=== PATIENT | male | born 1995 | race Caucasian/White ===

== ENCOUNTER 2019-11-02 10:06 | Emergency (ER) | payer MEDICARE, MEDICAID, SELFPAY ==
[2019-11-02 10:11] VITALS: BP 142/77; PULSE 62; RESP 18; TEMP 36.6; O2SAT 96
--- NOTE | 2019-11-02 10:12 | ED.GENADUL_ITS ---
Discharge Plan Disposition Patient Disposition: HOME Condition: Stable Discharge Details Chief Complaint: RashLesion Clinical Impression: Pilonidal abscess, Urinary urgency Primary Care Provider: Juan Rojas ED Provider: Ivette Garrett Home Meds and New Rx's Prescriptions: New amoxicillin-pot clavulanate [Augmentin] 875-125 mg tablet 1 tab PO BID 10 Days Qty: 20 RF: 0 miscellaneous medical supply Misc 1 each MC BID Qty: 1 RF: 0 Continued albuterol sulfate [ProAir HFA] 90 mcg/actuation HFA aerosol inhaler 2 puff Inhalation Q4H PRN Qty: 2 RF: 1 albuterol sulfate 2.5 mg /3 mL (0.083 %) solution for nebulization 2.5 mg Inhalation Q4H PRN PRN (Reason: shortness of breath or wheezing) Qty: 90 RF: 0 Discharge Instructions Instructions: Urinary Tract Infection in Men (ED), Abscess (ED) Additional Instructions: Your urine sample results do not appear consistent with a urinary tract infection. You were still given information about a urinary tract infection in your discharge instructions. Take the antibiotics as directed until finished. Continue to keep the buttock area clean and dry. Use the sitz bath as directed to irrigate the area to keep it clean. Be sure to cover the area with a dressing if planning to move around. If you are resting at home, remove the dressing and wear cotton underwear to allow the wound to heal and dry. Follow-up with your primary care doctor within the next week for reevaluation. If you have any persistent or worsening urinary symptoms, you should follow-up with urology. Return to the emergency department if you develop any worsening or new concerning symptoms such as fever, worsening pain, redness, swelling or any other concerns. Referrals: Syed Denis MD [ [facility] STAFF PHYSICIAN] - Discharge Data Discharge Physician: Ivette Garrett Medical Decision Making 24-year-old male presents with 2 complaints. First complaint is a painful opening/hole within center of buttocks for the past 3 weeks. Area is becoming larger and more painful. Denies any fever or bleeding. Second complaint is urinary urgency, dysuria and hesitancy over the past week. Patient is not sexually active. He denies any fever, nausea, abdominal pain, penile discharge. There is a 1 x 1.5 cm hole/opening within the superior intergluteal cleft. This appears likely consistent with a possible ruptured pilonidal cyst/abscess. There is minimal surrounding erythema but no induration or fluctuance. The area was cleaned with Hibiclens and dressed. Do not see an indication for any further I&D or packing. Do not see any indication for labs or imaging. Urinalysis negative for infection but does note 30 of protein and 3-5 RBCs. We will treat with augmentin. Patient requested something stronger for pain and a dose of tramadol was given here and 2 tabs for home. A prescription for a sitz bath was given per mom's request. Patient given urology follow-up information if urinary issue persists or worsens. Advised to follow-up with the PCP within 1 week for reevaluation. Usual and customary return precautions given prior to discharge. Medical Records Medical records reviewed: Yes I reviewed the patient's medical records. Lab Data Lab results reviewed: Yes I reviewed the patient's lab results. Labs: Laboratory Tests Range/Units 11/02/19 10:43 Urine Color (Yellow) Yellow Urine Clarity (Clear) Clear Urine pH (5-8) 7.0 Ur Specific [place] (1.005-1.025) 1.025 Urine Protein (Negative) mg/dL 30 H Urine Ketones (Negative) mg/dL Negative Urine Blood (Negative) Negative Urine Nitrite (Negative) Negative Urine Bilirubin (Negative) Negative Urine Urobilinogen (Up TO 0.2) EU/dL 1.0 H Ur Leukocyte Esterase (Negative) Negative Urine RBC (0-2) HPF 3-5 H Urine WBC (0-5) HPF 0-2 Ur Epithelial Cells (Negative) HPF Negative Urine Crystals (Negative) HPF Negative Urine Bacteria (Negative) HPF Few Urine Casts (Negative) LPF Negative Urine Mucus (Negative) Heavy Urine Other (Negative) Negative Ur Culture Indicated? No Urine Glucose (Negative) mg/dL Negative HPI General Mode of arrival: ambulatory . Date/Time Provider Initiated Documentation: 11/02/19 10:12 . Limitations to Documentation: no limitations . Information obtained by: patient . History of Present Illness 24 year old M presents to the emergency department with the chief complaint of 2 complaints: Painful draining hole in buttocks, Urinary urgency, stinging, Quality is described as aching and sharp, and is localized to the genitals and buttocks. Patient reports no radiation. Patient started experiencing this week(s) (3 weeks for buttocks; 1 week for urinary) and it has been constant. Medication improves symptom(s), (some improvement with ibuprofen) No exacerbating factors reported . Patient notes denies fever/chills, loss of appetite, malaise, nausea/vomiting and weakness. Patient did receive the following treatments prior to arrival, NSAID and other (tylenol ) Related Data Home Medications Medication Instructions Recorded Confirmed albuterol sulfate 2.5 mg INHALATION Q4H PRN PRN #90 08/02/19 11/02/19 ml albuterol sulfate 90 mcg/actuation 2 puff INHALATION Q4H PRN #2 08/02/19 11/02/19 aerosol inhaler inhaler amoxicillin-pot clavulanate 1 tab PO BID 10 Days #20 tab 11/02/19 [Augmentin] miscellaneous medical supply 1 each MC BID #1 each 11/02/19 Previous Rx's Medication Instructions Recorded albuterol sulfate 2.5 mg INHALATION Q4H PRN PRN #90 08/02/19 ml albuterol sulfate 90 mcg/actuation 2 puff INHALATION Q4H PRN #2 08/02/19 aerosol inhaler inhaler amoxicillin-pot clavulanate 1 tab PO BID 10 Days #20 tab 11/02/19 [Augmentin] miscellaneous medical supply 1 each MC BID #1 each 11/02/19 Allergies Allergy/AdvReac Type Severity Reaction Status Date / Time No Known Allergies Allergy Unverified 11/02/19 10:17 CATS Allergy Mild Uncoded 11/02/19 10:17 HAY Allergy Mild Uncoded 11/02/19 10:17 Review of Systems All systems reviewed & are unremarkable except as noted in HPI and below Constitutional Constitutional: Reports as per HPI, Denies chills and Denies fever(s) Eyes Eyes: Denies blurry vision ENT Ears, Nose, Mouth, and Throat: Denies dizziness, Denies sore throat and Denies throat swelling Cardiovascular Cardiovascular: Denies chest pain and Denies dyspnea Respiratory Respiratory: Denies cough and Denies dyspnea Gastrointestinal Gastrointestinal: Denies abdominal pain, Denies diarrhea and Denies vomiting Genitourinary Genitourinary: Denies hematuria, Reports dysuria, Denies penile discharge, Reports urinary frequency, Reports urinary hesitancy and Reports urinary urgency Musculoskeletal Musculoskeletal: Denies back pain and Denies numbness Integumentary/Breasts Skin/Breast: Reports lesions and Denies rash Neurologic Neurologic: Denies dizziness, Denies focal weakness and Denies numbness Allergic/Immunologic Allergic/Immunologic: Denies throat swelling [facility] Medical History Asthma (Chronic) Autism Respiratory failure requiring intubation due to severe asthma exacerbation/status asthmaticus - 2017 Surgical History H/O wisdom tooth extraction (Acute) Social History Smoking/Tobacco Use Status: Never Alcohol Intake: current Alcohol Intake frequency: holidays/special occasions only Drug use: Never Additional Social history: unable to assess privately Exam Const General: cooperative, healthy appearing and no acute distress HENMT Head: normal to inspection Face and sinus: normal facial exam Eyes General: appearance normal, both eyes and all related structures EOM: EOM intact bilaterally Neck Neck: normal visual inspection and No submandibular swelling Lymphatic: no lymphadenopathy noted Chest Chest: normal inspection of the chest and no tenderness Resp Effort & Inspection: normal respiratory effort and able to speak in complete sentences Auscultation: clear to auscultation bilaterally Cardio Rate: regular rate Rhythm: regular rhythm GI Inspection: normal to inspection Palpation: soft, not firm, not rigid and nontender Auscultation: normal bowel sounds Male General Exam: Yes normal external exam Penis: normal penis Scrotum: scrotum normal Testes: no testicular mass, no testicular swelling and no testicular tenderness Back/Spine/Pelvis Back/spine/pelvis image: 1. 1.5 cm x 1 cm hole/opening noted within the superior intergluteal cleft. There is minimal surrounding erythema with a darker erythematous border bilaterally on buttocks extending approximately 2 cm from the hole. There is minimal yellowish discharge noted just outside the opening. There is no induration, fluctuance, bleeding, rash or lesions. Anus appears normal to inspection. Skin General skin exam: no rashes or lesions noted Neuro General: alert, awake and oriented x3 Cognition: normal cognition Speech: speech normal Motor: muscle tone normal throughout Sensory Exam: no sensory deficits noted Extrem General: normal to inspection, full ROM, normal capillary refill, no calf tenderness bilaterally and no edema Psych Appearance: grossly normal Mental Status: mental status grossly normal Speech and Movement: speech and movement normal Affect: normal affect
[2019-11-02] MEDS: traMADol 50 MG TAB PO (10:57)
[2019-11-02 11:00] LABS: Bilirubin Negative (Negative); Blood Negative (Negative); Clarity Clear (Clear); Glucose Negative (Negative); Ketones Negative (Negative); Leukocyte Esterase Negative (Negative); Nitrite Negative (Negative); Specific Gravity 1.025 (1.005-1.025)
[2019-11-02 11:14] LABS: Bacteria Few HPF (Negative); C & S Indicated? No; Casts Negative LPF (Negative); Crystals Negative HPF (Negative); Epithelial Cells Negative HPF (Negative); Mucus Heavy (Negative); Other Cells Negative (Negative); WBC 0-2 HPF (0-5)
== END 2019-11-02 11:39 | disposition home or self-care (01) ==
PROVIDERS: Emergency Provider Physician Assistant; PCP Pediatrics
DX: L05.01 Pilonidal cyst with abscess (principal); R39.15 Urgency of urination; R30.0 Dysuria; F84.0 Autistic disorder
CPT/HCPCS: 99283; 81003; 81015

== ENCOUNTER → 2019-12-10 13:57 | Outpatient (BNVA) | payer MEDICARE, MEDICAID, SELFPAY | PROVIDERS: PCP Pediatrics; Referring Provider Pediatrics; Visit Provider Surgery | DX: L05.91 Pilonidal cyst without abscess (principal) | CPT/HCPCS: 99204; 99214 ==

== ENCOUNTER 2020-02-11 07:07 | Day surgery (SDC) | payer MEDICARE, MEDICAID, SELFPAY ==
[2020-02-11] VITALS (7 sets, daily range): BP systolic 110–144; BP diastolic 49–91; PULSE 67–103; RESP 16–20; TEMP 36.2–37.1; O2SAT 95–99
[2020-02-11] MEDS: Lactated Ringers 1,000 ML 80 ML IV ×2 (07:49→09:18)
--- NOTE | 2020-02-11 08:21 | W.PM.HP.N ---
Date of service: 02/11/20 Time of Service: 08:21 Assessment and Plan Assessment and plan (1) Pilonidal cyst without abscess: Status: Acute Assessment and plan: Assessment & Plan (1) Pilonidal cyst without abscess: We discussed the treatment options for pilonidal disease. This includes treating an abscess when it flare up with antibiotics/drainage or excising the area. If an excision is performed, the extent is not known until explored in the OR. The two pits are several cm apart and may result in a sizeable wound. Sometimes the wound can be closed primarily and sometimes it needs to be packed. He should mentally prepare for wound packing for a few months. The risk of recurrence with any approach was discussed. The procedure could be done with a spinal based on his preop discussion with anesthesia. He and his mother agree to proceed with surgery. History of Present Illness Narrative: Pilonidal cyst became infected in mid October. This was the first time he was aware of the issue. Is still uncomfortable, difficult to exercise and sit due to pressure. Continues to drain. Some improvement with antibiotics Has some urinary urgency, no change in bowel habits. Review of Systems All systems reviewed & are unremarkable except as noted in HPI and below PFSH Medical History Aspiration pneumonia (Inactive) Asthma (Chronic) Autism Respiratory failure requiring intubation due to severe asthma exacerbation/status asthmaticus - 2017 Status asthmaticus (Inactive) Urinary urgency (Inactive) Surgical History H/O wisdom tooth extraction (Acute) Social History Smoking/Tobacco Use Status: Never Alcohol Intake: current Alcohol Intake frequency: holidays/special occasions only Alcohol type: beer Drug use: Never Substance use type: does not use Do you feel safe at home: Yes Meds Home Medications and Allergies Home Medications Medication Instructions Recorded Confirmed Type albuterol sulfate 2.5 mg INHALATION Q4H PRN PRN #90 08/02/19 02/06/20 Rx ml miscellaneous medical supply 1 each MC BID #1 each 11/02/19 02/06/20 Rx albuterol sulfate 90 mcg/actuation 2 puff INHALATION Q4H PRN #2 12/07/19 02/11/20 Rx aerosol inhaler inhaler ibuprofen 800 mg tablet 800 mg PO TID 12/10/19 02/11/20 History acetaminophen [Tylenol Extra 500 mg PO Q6H PRN 02/06/20 02/11/20 History Strength] Allergies Allergy/AdvReac Type Severity Reaction Status Date / Time No Known Allergies Allergy Verified 02/11/20 07:19 CATS Allergy Mild Uncoded 02/11/20 07:19 HAY Allergy Mild Uncoded 02/11/20 07:19 Exam Narrative Exam Narrative: Slightly nervous Lungs CTA Heart RRR Small midline pit located at upper aspect of gluteal cleft. Larger opening present distal to this, several cm from the anal region. This opening is about 1cm. No acute abscess or cellulitis. Results Last Vital Signs Temp 97.2 F L 02/11/20 07:22 Pulse 103 H 02/11/20 07:22 Resp 18 02/11/20 07:22 BP 144/91 H 02/11/20 07:22 Pulse Ox 97 02/11/20 07:22 COVID-19 Screening Traveled to [place] from one of the affected countries or regions?: NO
[2020-02-11] MEDS: ceFAZolin 2 GM/50 ML BAG IVPB (08:28)
--- NOTE | 2020-02-11 09:00 | PILONIDAL_PTH ---
PATIENT: Stefanie Aaron LOC: [facility] U#:[id number] AGE/SX: 24/M ROOM: RE02/11/[address]: Chelsea Avila MD : 1995 BED: DIS: 02/11/2020 SPEC #: [id number] RECD: 02/11/20 12:10 STATUS: JORGE REHoa #: [id number] BIANCA: 02/11/20 09:[address]: Chelsea Avila DEPT: Surgical Specimen RECD BY: Alysha Gee ENTERED: 02/11/20 12:10 SP TYPE: PILONIDAL OTHR DR: Juan Rojas MD Tissues: 1 - PILONIDAL CYST/SINUS Procedures: GROSS AND MICRO LEVEL 3 Comments: [id number]
--- NOTE | 2020-02-11 09:14 | W.PM.DSUDISC ---
Discharge Plan Disposition Patient Disposition: HOME Condition: Good Discharge Details Reason For Visit: PILONIDAL CYST Attending Provider: Chelsea Avila Primary Care Provider: Juan Rojas Home Meds and New Rx's Prescriptions: Continued albuterol sulfate [ProAir HFA] 90 mcg/actuation HFA aerosol inhaler 2 puff Inhalation Q4H PRN Qty: 2 RF: 1 ibuprofen 800 mg tablet 800 mg PO TID RF: 0 albuterol sulfate 2.5 mg /3 mL (0.083 %) solution for nebulization 2.5 mg Inhalation Q4H PRN PRN (Reason: shortness of breath or wheezing) Qty: 90 RF: 0 miscellaneous medical supply Misc 1 each MC BID Qty: 1 RF: 0 acetaminophen [Tylenol Extra Strength] 500 mg Tablet 500 mg PO Q6H PRNRF: 0 Discharge Instructions Additional Instructions: The wound is open and should be packed on a daily basis with 1 inch gauze. It should then be covered with 4x4 gauze. The top dressing can be replaced as needed. Call for any concerns including fever, increased pain. A small amount of bloody discharge is expected. Do not lift more than 20 pounds for two weeks. Walking and stairs are fine. Do not drive if on narcotic pain meds or if limited by pain. May use Tylenol alternating with ibuprofen for pain control. Ice is also an option. The maximum dose for Tylenol is 4000 mg/day. May use ibuprofen 800 mg every 8 hours as needed. If concerned about constipation, you may use a stool softener or milk of magnesia. Referrals: Chelsea Avila MD [ [facility] STAFF PHYSICIAN] - (Return on for recheck) Activity:: Do not lift more than 15 pounds Remove Dressings/Wound Care:: 24 hours Shower/Bathe:: 24 hours Diet:: As Tolerated Discharge Orders Discharge Orders: Discharge Order (Routine); Ordered 02/11/20 Ordered By: Chelsea Avila DS: Diagnosis Discharge Diagnosis (1) Pilonidal cyst without abscess: Status: Acute
[2020-02-11] MEDS: Bupivacaine LIPOSOME/PF 133 MG/10 ML VIAL IJ (09:15)
--- NOTE | 2020-02-11 12:30 | W.PM.OP ---
Date of service: 02/11/20 Time of Service: 09:05 Operative Note Operative Note DATE OF PROCEDURE: 02/11/20 PRE-OP DIAGNOSIS: Pilonidal cyst POST-OP DIAGNOSIS: same PROCEDURE: Excision of pilonidal cyst SURGEON: Chelsea Avila ANESTHESIA: local and spinal Patient was transported to: PACU Patient's condition: stable Indications: This patient presented in October with a tender area in the gluteal cleft. He was diagnosed with an infected pilonidal cyst. This improved with antibiotics but he continues to have persistent drainage and tenderness in the region and presents for surgical excision. Procedure Description: The patient had a spinal anesthetic and then was positioned carefully in the prone jackknife position. The gluteal region was taped for exposure and the gluteal cleft prepped with Betadine and draped sterilely. A few centimeters above the anal verge there was a fairly wide pit measuring about 5 mm. This was the location of the drainage. There is no acute infection visualized. Several centimeters cranial to this was a tiny pit. The spinal was tested and the patient had good anesthesia. A probe was inserted into the lower pit opening and the skin overlying the probe opened up with knife and then with cautery down to a chronic pocket with some well-developed granulation tissue as well as a large amount of hair. This pocket did connect with the upper pit although the upper aspect was just a narrow channel. The wall of the cyst was removed with cautery down to healthy tissue. There is good hemostasis. I then packed the wound with a 1 inch gauze because the defect could not be closed without leaving too large of the space. I also injected 10 cc of Exparel at 1 cm intervals around the site. He tolerated the procedure well and was stable to recovery.
== END 2020-02-11 13:10 | disposition home or self-care (01) ==
PROVIDERS: PCP Pediatrics; Visit Provider Surgery
PROC: (CPT 11770; principal; 2020-02-11 08:15)
DX: L05.91 Pilonidal cyst without abscess (principal); F84.0 Autistic disorder
CPT/HCPCS: 11770; NC; 88304; J0690; J2001; J2250; J2704

== ENCOUNTER → 2020-02-14 11:19 | Outpatient (BNVA) | payer MEDICARE, MEDICAID, SELFPAY | PROVIDERS: PCP Pediatrics; Referring Provider Pediatrics; Visit Provider Surgery | DX: Z48.817 Encounter for surgical aftercare following surgery on the skin and subcutaneous tissue (principal) ==

== ENCOUNTER → 2020-02-21 08:59 | Outpatient (BNVA) | payer MEDICARE, MEDICAID, SELFPAY | PROVIDERS: PCP Pediatrics; Referring Provider Pediatrics; Visit Provider Surgery | DX: Z48.817 Encounter for surgical aftercare following surgery on the skin and subcutaneous tissue (principal) ==

== ENCOUNTER → 2020-03-10 13:47 | Outpatient (BNVA) | payer MEDICARE, MEDICAID, SELFPAY | PROVIDERS: PCP Pediatrics; Referring Provider Pediatrics; Visit Provider Surgery | DX: Z48.01 Encounter for change or removal of surgical wound dressing (principal); L05.91 Pilonidal cyst without abscess ==

== ENCOUNTER → 2020-03-24 13:30 | Outpatient (BNVA) | payer MEDICARE, MEDICAID, SELFPAY | PROVIDERS: PCP Pediatrics; Referring Provider Pediatrics; Visit Provider Surgery | DX: Z48.01 Encounter for change or removal of surgical wound dressing (principal); L05.91 Pilonidal cyst without abscess ==

== ENCOUNTER 2024-03-20 20:55 | Emergency (ER) | payer MEDICARE, MEDICAID, SELFPAY ==
[2024-03-20 21:09] VITALS: BP 154/98; PULSE 98; RESP 16; TEMP 36.1; O2SAT 95
--- NOTE | 2024-03-20 21:46 | ED.GENADUL_ITS ---
Discharge Plan Disposition Patient Disposition: Home Condition: Stable Discharge Details Clinical Impression: Dog bite of right lower leg, Dog bite of left hand Primary Care Provider: Unknown,Unknown ED Provider: Naida Roper Home Meds and New Rx's Prescriptions: New amoxicillin-pot clavulanate 875-125 mg tablet 1 tab PO BID 10 Days Qty: 20 0RF Rx Instructions: Take 1 tablet by mouth twice daily for the next 10 days No Action ibuprofen 800 mg tablet 800 mg PO TID albuterol sulfate 2.5 mg /3 mL (0.083 %) solution for nebulization 2.5 mg Inhalation Q4H PRN PRN (Reason: shortness of breath or wheezing) Qty: 90 0RF Rx Instructions: Disp 1 box albuterol sulfate [ProAir HFA] 90 mcg/actuation HFA aerosol inhaler 2 puff Inhalation Q4H PRN Qty: 2 1RF acetaminophen [Tylenol Extra Strength] 500 mg Tablet 500 mg PO Q6H PRN Discharge Instructions Instructions: Animal Bites ED Additional Instructions: At this time there is no evidence of broken bone or fracture. You were given a tetanus booster here in the department. Please take the antibiotic twice daily with yogurt or probiotic for 10 days. Keep the wound clean and dry may wash it with running soap and water daily. Do not soak the area. It is very rare for domesticated dogs in the city to have rabies however you have 48 hours or more to complete the rabies vaccine and get a prophylaxis immunoglobulin if you wish. Rabies treatment and prevention does involve multiple injections of medication. Follow up with primary care provider in 3-5 days. Return to ED sooner if any worsening or concerns. Please take Tylenol or Ibuprofen with food every 4-6 hours as needed for pain and swelling. Referrals: Primary Care Provider [Outside] - 5 days Discharge Data Discharge Date/Time-TO BE ENTERED AT DEPARTURE: 03/20/24 22:42 HPI General Mode of arrival: ambulatory . Date/Time Provider Initiated Documentation: 03/20/24 21:13 . Limitations to Documentation: no limitations . Information obtained by: patient, RN notes reviewed and old records reviewed . HPI Narrative: 28-year-old male presents to the ER with a dog bite to his left index finger and abrasion to right holman which occurred approximately an hour prior to arrival. Patient reports he was taking out the trash when the neighbors dog ran across the street and bit him. It sounds unprovoked. Animal control form filled out by family given to patient by ED staff. Discussed home care strict return instructions and follow-up care they verbalized understanding. Patient has a past medical history of autism, asthma Related Data Home Medications Medication Instructions Recorded Confirmed albuterol sulfate 2.5 mg/3 mL 2.5 mg (3 mL) inhalation Q4H PRN 08/02/19 03/20/24 (0.083 %) solution for nebulization PRN shortness of breath or wheezing #90 mL ibuprofen 800 mg tablet 800 mg PO TID 12/10/19 03/20/24 acetaminophen 500 mg tablet 500 mg PO Q6H PRN 02/06/20 03/20/24 (Tylenol Extra Strength) albuterol sulfate 90 mcg/actuation 2 puff inhalation Q4H PRN ##2 07/28/20 03/20/24 aerosol inhaler (ProAir HFA) amoxicillin 875 mg-potassium 1 tab PO BID Dog bite 10 days #20 03/20/24 clavulanate 125 mg tablet tabs Previous Rx's Medication Instructions Recorded albuterol sulfate 2.5 mg/3 mL 2.5 mg (3 mL) inhalation Q4H PRN 08/02/19 (0.083 %) solution for nebulization PRN shortness of breath or wheezing #90 mL albuterol sulfate 90 mcg/actuation 2 puff inhalation Q4H PRN ##2 07/28/20 aerosol inhaler (ProAir HFA) amoxicillin 875 mg-potassium 1 tab PO BID Dog bite 10 days #20 03/20/24 clavulanate 125 mg tablet tabs Allergies Allergy/AdvReac Type Severity Reaction Status Date / Time CATS Allergy Mild Unknown Uncoded 03/20/24 21:13 HAY Allergy Mild Unknown Uncoded 03/20/24 21:13 General Stated Complaint: AnimalBite DEMARCO: 3 Review of Systems All systems reviewed & are unremarkable except as noted in HPI and below Musculoskeletal Musculoskeletal: Reports as per HPI Integumentary/Breasts Skin/Breast: Reports as per HPI, Reports sores and Reports wounds Exam Skin Wounds: wounds noted avulsion left distal 2nd finger Full body images: 2 1. Small superficial abrasion noted to anterior holman Extrem Left upper extremity: hand Details: laceration (Superficial avulsion dorsal surface left index finger); no crepitus and no foreign bodies Hand/finger images: 2 1. Avulsion, bleeding controlled 2. Blood blister Knee images: 2 1. Superficial abrasion to right anterior holman Course Vital Signs Vital signs: Vital Signs Temperature 36.1 C L 03/20/24 21:09 Pulse 98 H 03/20/24 21:09 Respiratory Rate 16 03/20/24 21:09 Blood Pressure 154/98 H 03/20/24 21:09 Pulse Oximetry 95 03/20/24 21:09 Temperature 36.1 C L 03/20/24 21:09 Temperature Source Temporal Artery Scan 03/20/24 21:09 Pulse 98 H 03/20/24 21:09 Respiratory Rate 16 03/20/24 21:09 Respiratory Effort Normal 03/20/24 21:15 Blood Pressure 154/98 H 03/20/24 21:09 Pulse Oximetry 95 03/20/24 21:09 Oxygen Delivery Method Room Air 03/20/24 21:09 Oxygen Flow Rate 0 03/20/24 21:09 Pain Level 10 03/20/24 21:09 Medical Decision Making 28-year-old male presents to the ER with a dog bite to his left index finger and abrasion to right holman which occurred approximately an hour prior to arrival. Patient reports he was taking out the trash when the neighbors dog ran across the street and bit him. It sounds unprovoked. Animal control form filled out by family given to patient by ED staff. Discussed home care strict return instructions and follow-up care they verbalized understanding. X-ray ordered to rule out fracture, foreign body, no acute bony abnormality, Patient given Augmentin discussed home care strict return instructions and signs of infection. Verbalized understanding. This text was generated using [employer] system, please disregard any oddities of phrase or misspellings. Imaging Data Radiologic Study: Attestation: I personally reviewed and interpreted this imaging study as follows: Imaging: X-Ray My impression: No acute bony abnormality, no evidence of fracture to the distal phalanx of left index finger, no foreign body. Quality:SDOH Health Related Social Needs: 2 No Data to Display PFSH All Active Problems (Updated 03/20/24 @ 22:25 by Naida Roper NP) Dog bite of left hand (Acute) Dog bite of right lower leg (Acute) Postop check (Acute) Medical History (Updated 03/20/24 @ 22:25 by Naida Roper NP) Pre-op evaluation Pilonidal cyst without abscess Urinary urgency Pilonidal abscess Asthma Respiratory failure requiring intubation due to severe asthma exacerbation/status asthmaticus - 2017 Autism Aspiration pneumonia Status asthmaticus Surgical History H/O wisdom tooth extraction Social History Smoking/Tobacco Use Status: Never Smoking risk assessment performed?: Yes Alcohol Intake: current Alcohol Intake frequency: holidays/special occasions only Alcohol type: beer Drug use: Never Substance use type: does not use Do you feel safe at home: Yes
[2024-03-20] MEDS: Amoxicillin 875/Clav. 125 TAB PO (21:59)
--- NOTE | 2024-03-20 22:05 | DI.RAD_ITS ---
Exam(s) XR FINGER LT INDEX EXAM: XR FINGER LT INDEX CLINICAL HISTORY: Dog bite. TECHNIQUE: 2D digital imaging was performed. Three views. COMPARISON: None. FINDINGS: BONES: No acute fracture is present. No bony destructive lesion is seen. JOINTS: No dislocation present. SOFT TISSUE: Swelling. No foreign body or abnormal gas collection. IMPRESSION: Soft tissue swelling. DATA REPOSITORY: RADIATION DOSE DELIVERED:
--- NOTE | 2024-03-20 23:48 | NUR.NOTE ---
Animal bite report form filed and sent down to medical records and the [facility] officer for [facility] has been notified.
--- NOTE | 2024-03-20 23:50 | DI.VRAD_ITS ---
PROCEDURE INFORMATION: Exam: XR Left Finger(s) Exam date and time: 03/20/2024 10:01 PM Age: 28 years old Clinical indication: Injury or trauma; Other: Dog bite TECHNIQUE: Imaging protocol: Radiologic exam of the left fingers. Views: Minimum 2 views. COMPARISON: No relevant prior studies available. FINDINGS: Bones/joints: No suspicious osseous lytic or blastic lesion. No acute fracture or dislocation. Soft tissues: Distal 2nd finger soft tissue edema. No radiopaque retained foreign body. IMPRESSION: No acute fracture or dislocation. Dictated and Authenticated by: Naif Grullon MD. Ordering:MAYRA Pascal MD
== END 2024-03-20 22:42 | disposition home or self-care (01) ==
PROVIDERS: Emergency Provider Registered Nurse Emergency
DX: S80.871A Other superficial bite, right lower leg, initial encounter (principal); S80.811A Abrasion, right lower leg, initial encounter; W54.0XXA Bitten by dog, initial encounter; Y93.89 Activity, other specified; Z23 Encounter for immunization
CPT/HCPCS: 90471; 90715; 99283; 73140

== ENCOUNTER 2025-05-25 16:56 | Emergency (ER) | payer MEDICARE, MEDICAID, SELFPAY ==
[2025-05-25 17:02] VITALS: BP 147/83; PULSE 116; RESP 16; TEMP 36.7; O2SAT 95
--- NOTE | 2025-05-25 17:18 | W.ED.GENAD ---
Discharge Plan Disposition Patient Disposition: Home Condition: Stable Discharge Details Clinical Impression: Cellulitis of left leg Primary Care Provider: Unknown,Unknown ED Provider: Lupis Pack Home Meds and New Rx's Prescriptions: New cephalexin 500 mg capsule 500 mg PO QID 9 Days Qty: 36 0RF No Action ibuprofen 800 mg tablet 800 mg PO TID albuterol sulfate 2.5 mg /3 mL (0.083 %) solution for nebulization 2.5 mg Inhalation Q4H PRN PRN (Reason: shortness of breath or wheezing) Qty: 90 0RF Rx Instructions: Disp 1 box albuterol sulfate [ProAir HFA] 90 mcg/actuation HFA aerosol inhaler 2 puff Inhalation Q4H PRN Qty: 2 1RF fluticasone furoate [Arnuity Ellipta] 100 mcg/actuation blister with device 1 inh INHALATION DAILY Patient Comments: INHALE 1 PUFF BY MOUTH DAILY acetaminophen [Tylenol Extra Strength] 500 mg Tablet 500 mg PO Q6H PRN Discharge Instructions Instructions: Cellulitis (Skin Infection), Adult ED Additional Instructions: You were seen in the emergency department today for evaluation of a skin rash that has been worsening over the past few days to a week. In her department a full physical examination performed, you had no concerning findings of the joint of your knee specifically, but the rash could represent a number of different things. We did discuss the possibility for a skin and soft tissue infection such as cellulitis or erysipelas. We also discussed the possibility for tick or Lyme borne illnesses. We have started you on an antibiotic called cephalexin, you will take this 4 times per day for the next 10 days. If you have a positive finding on your tick panel you will be contacted by phone to change the antibiotic. Please follow-up with your primary care provider in the next few days to discuss this visit and any symptoms that change, worsen, or persist. Thank you for allowing us to be part of your care. HPI General Mode of arrival: ambulatory. Date/Time Provider Initiated Documentation: 05/25/25 16:59. Limitations to Documentation: no limitations. Information obtained by: patient, family and old records reviewed. HPI Narrative: This is a 29-year-old male patient with past medical history significant for asthma, autism, presenting for evaluation of a rash on the left leg. The patient reports that about a month ago he fell and injured his left knee. He had a small area of redness on the front of his left knee at that time. He did not think much of it, as he was able to bend the knee and walk around without difficulty. He did not sustain other injury during this event. He states that about a week ago his redness started to spread, his parent noticed and was prompted to bring him in for evaluation at that time. He cannot recall any other exposures, no new detergents, soaps, lotions, etc. He states that he has had some tick bites over the summer, none recently. No recent antibiotic use. Otherwise in his normal state of health. Related Data Home Medications ?Medication ?Instructions ?Recorded ?Confirmed albuterol sulfate 2.5 mg/3 mL 2.5 mg (3 mL) inhalation Q4H PRN 08/02/19 05/25/25 (0.083 %) solution for nebulization PRN shortness of breath or wheezing #90 mL ibuprofen 800 mg tablet 800 mg PO TID 12/10/19 05/25/25 acetaminophen 500 mg tablet 500 mg PO Q6H PRN 02/06/20 03/20/24 (Tylenol Extra Strength) albuterol sulfate 90 mcg/actuation 2 puff inhalation Q4H PRN ##2 07/28/20 05/25/25 aerosol inhaler (ProAir HFA) cephalexin 500 mg capsule 500 mg PO QID 9 days #36 caps 05/25/25 fluticasone furoate 100 1 inh inhalation DAILY 05/25/25 05/25/25 mcg/actuation blister powder for inhalation (Arnuity Ellipta) Previous Rx's ?Medication ?Instructions ?Recorded albuterol sulfate 2.5 mg/3 mL 2.5 mg (3 mL) inhalation Q4H PRN 08/02/19 (0.083 %) solution for nebulization PRN shortness of breath or wheezing #90 mL albuterol sulfate 90 mcg/actuation 2 puff inhalation Q4H PRN ##2 07/28/20 aerosol inhaler (ProAir HFA) cephalexin 500 mg capsule 500 mg PO QID 9 days #36 caps 05/25/25 Allergies Allergy/AdvReac Type Severity Reaction Status Date / Time CATS Allergy Mild Unknown Uncoded 05/25/25 17:04 HAY Allergy Mild Unknown Uncoded 05/25/25 17:04 General Stated Complaint: Cellulitis DEMARCO: 3 Exam Narrative Exam Narrative: Gen: Awake and alert, in no apparent distress HEENT: Non-icteric sclera Neck: Supple Lungs: No apparent respiratory distress, normal respiratory effort. CV: Appears well perfused Abdomen: Non-distended MSK: Moves 4 extremities without apparent limitation in ROM. The patient has full range of motion of the affected left knee without pain with passive range of motion, knee effusion that is palpable, or tenderness over the quadriceps or palp patellar tendon nor medial or lateral joint line. Skin: Left leg with a red rash, well-demarcated with a slightly raised border overlying the proximal holman up to the mid thigh, with some additional similar lesions on the posterior thigh. The area is slightly warm but not significantly indurated, nontender, no itchiness, mild skin flaking appreciated over the left knee. No blistering, Nikolsky negative, no vesicular changes or petechiae Neuro: Normal Gait, no obvious focal deficits or facial asymmetry. Speaks in full, clear sentences. Psych: Appropriate for situation. Course Vital Signs Vital signs: Vital Signs Temperature 36.7 C 05/25/25 17:02 Pulse 116 H 05/25/25 17:02 Respiratory Rate 16 05/25/25 17:02 Blood Pressure 147/83 H 05/25/25 17:02 Pulse Oximetry 95 05/25/25 17:02 Temperature 36.7 C 05/25/25 17:02 Temperature Source Oral 05/25/25 17:02 Pulse 116 H 05/25/25 17:02 Respiratory Rate 16 05/25/25 17:02 Blood Pressure 147/83 H 05/25/25 17:02 Pulse Oximetry 95 05/25/25 17:02 Oxygen Delivery Method Room Air 05/25/25 17:02 Oxygen Flow Rate 0 05/25/25 17:02 Medical Decision Making This is a 29-year-old male patient presenting for evaluation of skin rash. Thought this was related to a fall about a month ago I am reassured against severe traumatic injury given the patient's benign physical examination. I do not note any evidence concerning for septic joint/arthritis. I did consider in my differential skin and soft tissue infections including cellulitis, erysipelas, considered tickborne illnesses including Lyme's disease, exam less consistent with contact dermatitis, allergic reaction, SJS/TEN. Considered psoriasis, tinea corporis. The patient was slightly tachycardic when he arrived, endorsing anxiety, though given this finding it would be prudent to proceed with basic laboratory evaluation to include CBC, CMP, magnesium, and a tick panel. - I independently interpreted the laboratory studies, which show no significant leukocytosis (though his white cell count is slightly elevated to 12), anemia, or thrombocytopenia. The chemistry panel is without evidence of electrolyte abnormality, kidney dysfunction, or liver injury. I noted a very slight elevation in his BUN to creatinine ratio, and encouraged oral hydration. I provided the patient with his first dose of cephalexin which should cover for common skin and soft tissue infections, but counseled the patient that he may be contacted with the results of his tick and Lyme panel, and that he should have close follow-up with his primary care provider for reassessment, as treatment may need to be changed if he is not responding appropriately. We discussed return precautions, which include fever or chills, shortness of breath, chest pain, purulent drainage, neurovascular derangement, or any other symptoms that cause patient concern. At this time, the patient has had a full medical evaluation and is safe for discharge to home. They are hemodynamically stable, ambulatory, and tolerating PO. They are understanding of the follow-up plan and return precautions. They left our facility without incident. Lupis Pack MD [facility], [facility] All Active Problems (Updated 05/25/25 @ 18:03 by Lupis Pack MD) Cellulitis of left leg (Acute) Postop check (Acute) Medical History (Updated 05/25/25 @ 18:03 by Lupis Pack MD) Pre-op evaluation Pilonidal cyst without abscess Urinary urgency Pilonidal abscess Asthma Respiratory failure requiring intubation due to severe asthma exacerbation/status asthmaticus - 2017 Autism Aspiration pneumonia Status asthmaticus Surgical History H/O wisdom tooth extraction Social History Smoking/Tobacco Use Status: Never Smoking risk assessment performed?: Yes Alcohol Intake: current Alcohol Intake frequency: holidays/special occasions only Alcohol type: beer Drug use: Never Substance use type: does not use Do you feel safe at home: Yes
[2025-05-25] MEDS: Cephalexin 500 MG CAP PO (17:30)
[2025-05-25 17:34] LABS: Abs Immature Grans 0.04 10^3/uL (0.0-0.06); HCT 43.5 % (40.0-50.0); HGB 15.4 g/dL (13.5-17.5); Immature Grans % 0.3 %; MCH 30.0 pg (27.0-33.0); MCHC 35.4 % (32.0-36.0); MCV 85 fL (80-95); MPV 9.6 fL (8.0-11.0); Platelet Count 304 10^3/uL (130-400); RBC 5.13 10^6/uL (4.36-5.78); RDW 12.0 % (11.8-14.1); RDW-SD 37.0 fL; WBC 12.00 10^3/uL (4.4-10.8)
[2025-05-25 17:48] LABS: ALT 34 U/L (16-63); AST 16 U/L (15-37); Albumin 4.2 g/dL (3.4-5.0); Alkaline Phosphatase 66 U/L (46-116); Anion Gap 8.9 mmol/L (3-11); BUN 24 mg/dL (7-18); Bilirubin, Total 1.1 mg/dL (0.2-1.0); CO2 27.1 mmol/L (21.0-32.0); Calcium 8.8 mg/dL (8.5-10.1); Chloride 104 mmol/L (98-107); Estimated GFR 104.48 (mL/min/1.73m2); Glucose 131 mg/dL (74-106); Magnesium 1.8 mg/dL (1.8-2.4); Potassium 3.5 mmol/L (3.5-5.1); Sodium 140 mmol/L (136-145); Total Protein 7.6 g/dL (6.4-8.2)
[2025-05-25 18:09] VITALS: BP 147/83; PULSE 116; RESP 16; TEMP 36.7; O2SAT 95
[2025-05-25] MEDS: Cephalexin 500 MG CAP, 4 CAPS/BTL PO (18:09)
[2025-05-27 12:15] LABS: Lyme Ab w Rflx to Lyme Confirm Positive (Negative)
[2025-05-27 15:14] LABS: Lyme IgG Ab Positive (Negative)
[2025-05-29 17:04] LABS: B. miyamotoi PCR Negative (Negative); Babesia divergens/MO-1 Negative (Negative); Ehrlichia muris eauclairensis Negative (Negative)
== END 2025-05-25 18:11 | disposition home or self-care (01) ==
PROVIDERS: Emergency Provider Emergency Medicine
DX: L03.116 Cellulitis of left lower limb (principal)
CPT/HCPCS: 99283 ×2; 80053; 86617; 87798; 83735; 85025; 86618